=== PATIENT | male | born 1965 | race Hispanic/Latino ===

== ENCOUNTER 2022-09-07 05:45 | Emergency (ER) | payer OTHER ==
[~2022-09-07] VITALS: Ht 177.8 cm; Wt 88.9 kg
[2022-09-07] MEDS ORDERED: TAMS-1 PO (06:13)
[2022-09-07 06:16] VITALS: BP 163/96
[2022-09-07 06:31] LABS: APPEARANCE,URINE CLEAR (CLEAR); BILIRUBIN,URINE NEGATIVE (NEGATIVE); COLOR,URINE COLORLESS (YELLOW); GLUCOSE, URINE (UA) NEGATIVE (NEGATIVE); KETONES,URINE NEGATIVE (NEGATIVE); LEUKOCYTE ESTERASE ,URINE NEGATIVE Leu/uL (NEGATIVE); NITRATE,URINE NEGATIVE (NEGATIVE); OCCULT BLOOD,URINE NEGATIVE (NEGATIVE); PROTEIN,URINE NEGATIVE (NEGATIVE); UROBILINOGEN,URINE 0.2 mg/dL (0.2-1.0)
== END 2022-09-07 07:05 | disposition home or self-care (01) ==
LOC: EDH 05:45
DX: N40.1 Benign prostatic hyperplasia with lower urinary tract symptoms (principal); R33.8 Other retention of urine; R03.0 Elevated blood-pressure reading, without diagnosis of hypertension; Z79.899 Other long term (current) drug therapy; Z98.890 Other specified postprocedural states
CPT/HCPCS: 51702; 81003

== ENCOUNTER 2022-11-20 23:20 | Emergency (ER) | payer OTHER ==
[~2022-11-20] VITALS: Ht 177.8 cm; Wt 87.1 kg
[~2022-11-20 23:20] MED LIST: TAMS-1 PO
[2022-11-21 00:25] LABS: ADD UA MICROSCOPIC YES; APPEARANCE,URINE TURBID (CLEAR); BILIRUBIN,URINE NEGATIVE (NEGATIVE); COLOR,URINE BROWN (YELLOW); GLUCOSE, URINE (UA) 150 mg/dL (NEGATIVE); KETONES,URINE NEGATIVE (NEGATIVE); LEUKOCYTE ESTERASE ,URINE 75 Leu/uL (NEGATIVE); NITRATE,URINE NEGATIVE (NEGATIVE); OCCULT BLOOD,URINE LARGE (NEGATIVE); PROTEIN,URINE 200 mg/dL (NEGATIVE); UROBILINOGEN,URINE 0.2 mg/dL (0.2-1.0)
[2022-11-21 00:27] LABS: MUCUS,URINE RARE LPF (None Seen); RBC,URINE TNTC /HPF (0-1); SQUAMOUS EPITHELIAL CELL,UR RARE /HPF (0-2); WBC,URINE 26-50 /HPF (0-1); YEAST,URINE BUDDING MANY /HPF (None Seen)
[2022-11-21 00:36] VITALS: BP 154/74; PULSE 85; RESP 18; O2SAT 98
[2022-11-21] MEDS ORDERED: CEPH500B PO (00:49)
== END 2022-11-21 01:04 | disposition home or self-care (01) ==
LOC: EDH 23:20
DX: N39.0 Urinary tract infection, site not specified (principal); Z98.890 Other specified postprocedural states; Z88.8 Allergy status to other drugs, medicaments and biological substances
CPT/HCPCS: 51702; 81001; 87088